=== PATIENT | male | born 1935 | race Caucasian/White ===

== ENCOUNTER 2017-01-30 19:59 | Inpatient (IN) | payer MEDICARE, BC ==
[2017-01-30] VITALS: BP 143/79
[~2017-01-30] VITALS: Ht 157.5 cm; Wt 79.4 kg
--- NOTE | 2017-01-30 20:05 | NUR ---
To bed 1 an 81 yo male bibra with c/o of sob [place]. Patient is aao3, tachypneic, without use of accessory muscles, diminished lungs sounds with mild wheezes heard bilaterally. On room air, patient's o2 saturation is 90. Placed on nonrebreather mask at 15lpm, thuan well with o2 saturation of 100%. Gowned. Placed on board filler. Awaiting for er md holland.
--- NOTE | 2017-01-30 20:14 | NUR ---
Dr Damon at bedside for eval.
--- NOTE | 2017-01-30 20:20 | NUR ---
crime lab technician at bedside.
[2017-01-30 20:25] LABS: BASOPHILS # (AUTO) 0.1 /CMM (0.0-0.2); BASOPHILS % (AUTO) 1.4 % (0.0-2.0); EOSINOPHILS # (AUTO) 0.5 /CMM (0.0-0.7); EOSINOPHILS % (AUTO) 7.6 % (0.0-6.0); HEMATOCRIT 49 % (39-51); HEMOGLOBIN 16.1 g/dL (13.5-17.5); LYMPHOCYTES # (AUTO) 2.2 /CMM (0.8-4.8); LYMPHOCYTES % (AUTO) 33.1 % (20.0-44.0); MEAN CORPUSCULAR HEMOGLOBIN 29 PG (26.0-33.0); MEAN CORPUSCULAR HGB CONC 33 g/dl (31.0-36.0); MEAN CORPUSCULAR VOLUME 88 fL (80-96); MONOCYTES # (AUTO) 0.4 /CMM (0.1-1.30); MONOCYTES % (AUTO) 6.7 % (2.0-12.0); NEUTROPHILS # (AUTO) 3.4 /CMM (1.8-8.9); NEUTROPHILS % (AUTO) 51.2 % (43.0-81.0); PLATELET COUNT (AUTO) 201 /CMM (150-450); RDW COEFFICIENT OF VARIATION 14.1 (11.5-15.0); RED BLOOD CELL COUNT(AUTO) 5.57 MIL/uL (4.5-6.0); WHITE BLOOD COUNT (AUTO) 6.7 K/uL (4.3-11.0)
[2017-01-30] MEDS ORDERED: methylPREDNISolone SOD SUCC 125 MG/2ML VIAL ONE (20:28)
[2017-01-30] MEDS ORDERED: ALBUTEROL FS 2.5 MG/3 ML VIAL.NEB NEB ONE (20:30)
[2017-01-30] MEDS ORDERED: methylPREDNISolone SOD SUCC 125 MG/2ML VIAL IV ONE (20:30)
[2017-01-30] MEDS ORDERED: IPRATROPIUM NEB FS 0.5 MG/2.5 ML AMPUL.NEB NEB ONE (20:30)
--- NOTE | 2017-01-30 20:37 | NUR ---
breathing treatment by rt.
[2017-01-30] MEDS ORDERED: ALBUTEROL FS 2.5 MG/3 ML VIAL.NEB ONE (20:38)
[2017-01-30] MEDS ORDERED: IPRATROPIUM NEB FS 0.5 MG/2.5 ML AMPUL.NEB ONE (20:38)
[2017-01-30 20:48] LABS: TROPONIN I 0.325 ng/mL (0.00-0.056)
[2017-01-30 20:53] LABS: ALBUMIN 3.6 g/dL (3.4-5.0); BILIRUBIN,DIRECT 0.1 mg/dL (0.0-0.2); BILIRUBIN,TOTAL 0.4 mg/dL (0.2-1.0); CREATININE 1.1 mg/dL (0.6-1.3); TOTAL PROTEIN, SERUM 7.5 g/dL (6.4-8.2)
[2017-01-30 21:08] LABS: INR 0.96 (0.87-1.13); PROTHROMBIN TIME 10.3 SECS (9.5-12.7)
[2017-01-30] MEDS ORDERED: ASPIRIN 81 MG TAB.CHEW PO ONE (21:30)
[2017-01-30] MEDS ORDERED: FUROSEMIDE 20 MG/2 ML VIAL IV ONE (21:30)
--- NOTE | 2017-01-30 21:30 | NUR ---
PAGED BURAK CARLSONFOR ADMISSION.
[2017-01-30] MEDS ORDERED: ASPIRIN 81 MG TAB.CHEW ONE (21:37)
[2017-01-30] MEDS ORDERED: FUROSEMIDE 20 MG/2 ML VIAL ONE (21:37)
[2017-01-30] MEDS ORDERED: MAG HYDROX/AL HYDROX/SIMETH 30 ML UDC PO PRN (22:00)
[2017-01-30] MEDS ORDERED: ONDANSETRON HCL/PF 4 MG/2 ML VIAL IVP PRN (22:00)
[2017-01-30] MEDS ORDERED: HYDROCODONE/APAP 5/325MG 1 EACH TABLET PO PRN (22:00)
[2017-01-30] MEDS ORDERED: IPRATROPIUM NEB FS 0.5 MG/2.5 ML AMPUL.NEB NEB PRN (22:00)
[2017-01-30] MEDS ORDERED: ALBUTEROL FS 2.5 MG/0.5 ML VIAL.NEB NEB PRN (22:00)
[2017-01-30] MEDS ORDERED: ENOXAPARIN SODIUM 40 MG/0.4 ML DISP.SYRIN SQ SCH (22:00)
[2017-01-30] MEDS ORDERED: MAGNESIUM HYDROXIDE 30 ML UDC PO PRN (22:00)
[2017-01-30] MEDS ORDERED: ACETAMINOPHEN 325 MG TABLET PO PRN (22:00)
[2017-01-30] MEDS ORDERED: Z GUARD REMEDY 2 OZ OINT TP PRN (22:00)
[2017-01-30] MEDS ORDERED: BUDE10.2 INH (22:14)
[2017-01-30] MEDS ORDERED: TERA5CAP4 PO (22:14)
[2017-01-30] MEDS ORDERED: ATEN25TA PO (22:15)
[2017-01-30] MEDS ORDERED: ISOS60TA4 PO (22:15)
[2017-01-30] MEDS ORDERED: SIMV20TA6 PO (22:16)
[2017-01-30] MEDS ORDERED: FURO20TA4 PO (22:16)
[2017-01-30] MEDS ORDERED: ALBU18HF2 INH (22:17)
[2017-01-30] MEDS ORDERED: LISI-603 PO (22:17)
[2017-01-30] MEDS ORDERED: MOME45CR20 TP (22:18)
[2017-01-30] MEDS ORDERED: NITROGLYCERIN PACKET 1 GM PACKET ONE (22:18)
[2017-01-30] MEDS ORDERED: NITROGLYCERIN PACKET 1 GM PACKET TD ONE (22:30)
--- NOTE | 2017-01-30 22:30 | NUR ---
Report given to Jv RN for phuc.
--- NOTE | 2017-01-30 22:41 | NUR ---
transported to [address], rm [address] under [facility] protocol, Jv RN at bedside. No incident noted.
[2017-01-30 22:45] VITALS: BP 155/76
--- NOTE | 2017-01-30 22:45 | NUR ---
SUPERVISOR QUILTING NOTES ADMITTED THIS 81 YEAR OLD GENTLEMAN. RECEIVED PATIENT FROM ER VIA GURNEY, PATIENT AMBULATORY, STEADY WITHOUT ANY ASSISTANCE. BREATHING EVEN AND NONLABORED, DENIES ANY RESPIRATORY DISTRESS AT THIS TIME. TOLERATING O2 AT 2LPM VIA NC. PLACED ON TELEMETRY MONITORING, REVEALING SINUS TACHYCARDIA, HR = 110. SKIN INTACT. IV SITE PATENT AND INTACT, FLUSHED WITH NS, SALINE LOCKED. PLAN OF CARE DISCUSSED WITH THE PATIENT AND FAMILY MEMBERS, WHO BOTH VERBALIZE UNDERSTANDING REGARDING THE PLAN OF CARE. CALL LIGHT LEFT WITHIN EASY REACH, BED IN LOWEST AND LOCKED POSITION. WILL CONTINUE TO CLOSELY MONITOR
[2017-01-30] MEDS ORDERED: ENOXAPARIN SODIUM 40 MG/0.4 ML DISP.SYRIN SQ ONE (22:49)
[2017-01-31] VITALS: BP 143/79
--- NOTE | 2017-01-31 03:09 | NUR ---
RN NOTES 2ND TROPONIN 0.367, ELEVATED FROM 0.325. D-DIMER 0.65. RESULTS RELAYED TO DR DERAS, NO NEW ORDERS RECEIVED.
[2017-01-31 04:00] VITALS: BP 108/52
--- NOTE | 2017-01-31 07:27 | NUR ---
RN CLOSING NOTES PATIENT ENDORSED TO THE AM SHIFT NURSE FOR ALBERTO
[2017-01-31 08:00] VITALS: BP 155/78
[2017-01-31 08:32] LABS: BASOPHILS % (AUTO) 0.2 % (0.0-2.0); HEMATOCRIT 46 % (39-51); HEMOGLOBIN 15.4 g/dL (13.5-17.5); LYMPHOCYTES # (AUTO) 0.8 /CMM (0.8-4.8); LYMPHOCYTES % (AUTO) 13.6 % (20.0-44.0); MEAN CORPUSCULAR HEMOGLOBIN 29 PG (26.0-33.0); MEAN CORPUSCULAR HGB CONC 34 g/dl (31.0-36.0); MEAN CORPUSCULAR VOLUME 87 fL (80-96); MONOCYTES # (AUTO) 0.1 /CMM (0.1-1.30); MONOCYTES % (AUTO) 1.1 % (2.0-12.0); NEUTROPHILS # (AUTO) 4.7 /CMM (1.8-8.9); NEUTROPHILS % (AUTO) 85.1 % (43.0-81.0); PLATELET COUNT (AUTO) 193 /CMM (150-450); RDW COEFFICIENT OF VARIATION 13.5 (11.5-15.0); RED BLOOD CELL COUNT(AUTO) 5.29 MIL/uL (4.5-6.0); WHITE BLOOD COUNT (AUTO) 5.6 K/uL (4.3-11.0)
[2017-01-31 08:35] LABS: ALBUMIN 3.4 g/dL (3.4-5.0); BILIRUBIN,TOTAL 0.5 mg/dL (0.2-1.0); CALCIUM, SERUM 8.8 mg/dL (8.5-10.1); POTASSIUM 3.9 mmol/L (3.5-5.1); TOTAL PROTEIN, SERUM 7.4 g/dL (6.4-8.2)
[2017-01-31] MEDS: ASPIRIN 81 MG TAB.CHEW PO SCH (08:36)
[2017-01-31 08:45] LABS: THYROID STIMULATING HORMONE 0.654 uIU/mL (0.358-3.74)
[2017-01-31] MEDS ORDERED: Budesonide/Formoterol Fumarate (Symbicort 160-4.5 Mcg In INH SCH (09:00)
[2017-01-31] MEDS ORDERED: FUROSEMIDE 40 MG/4 ML VIAL IV SCH (09:00)
[2017-01-31] MEDS ORDERED: ATENOLOL 25 MG TABLET PO SCH (09:00)
[2017-01-31 12:00] VITALS: BP 154/77
[2017-01-31] MEDS ORDERED: POTASSIUM CHLORIDE 20 MEQ TAB.PRT.SR PO SCH (12:00)
[2017-01-31] MEDS: FUROSEMIDE 40 MG/4 ML VIAL IV SCH ×3 (12:08→20:14)
[2017-01-31] MEDS: MOMETASONE FUROATE 0.1% CREAM 15 GM TUBE TP SCH (12:08)
[2017-01-31] MEDS: ISOSORBIDE MONONITRATE (30MG) 30 MG TAB.SR.24H PO SCH (12:10)
--- NOTE | 2017-01-31 15:06 | NUR ---
RN NOTES PT REFUSED TO GO THROUGH STRESS TEST STATING THAT HE IS SCARED, AND THAT HE HAD THIS TEST DONE 10 YEARS AGO. RISKS AND BENEFITS EXPLAINED, PT STILL REFUSED. DR KING NOTIFIED. HE SAID TO CANCELL THE ORDER/TEST.
[2017-01-31 16:00] VITALS: BP 127/65
--- NOTE | 2017-01-31 16:55 | NUR ---
RN NOTES PT CHANGED MIND AND CONSENTED TO STRESS TEST, DR KING NOTIFIED. WILL ENDORSE TO [employer] ASSEMBLER NURSE.
[2017-01-31] MEDS ORDERED: SIMVASTATIN 20 MG TABLET PO SCH (18:00)
[2017-01-31] MEDS ORDERED: TERAZOSIN HCL 5 MG CAPSULE PO SCH (18:00)
--- NOTE | 2017-01-31 19:30 | NUR ---
RN INITIAL NOTES RECEIVED PATIENT IN BED, AWAKE, ALERT AND ORIENTED X3, ABLE TO VERBALIZE NEEDS. PATIENT'S FAMILY MEMBER AT BEDSIDE. BREATHING EVEN AND NONLABORED, PATIENT CURRENTLY ON ROOM AIR, TOLERATING WELL, FREE FROM ANY S/S OF RESPIRATORY DISTRESS. STANDBY O2 @ BEDSIDE. IV SITE PATENT AND INTACT, FLUSHED WITH NS, FREE FROM ANY S/S OF INFILTRATION OR PHLEBITIS. PLAN OF CARE DISCUSSED WITH THE PATIENT, WHO VERBALIZES UNDERSTANDING. CALL LIGHT LEFT WITHIN EASY REACH, BED IN LOWEST AND LOCKED POSITION. WILL CONTINUE TO CLOSELY MONITOR
[2017-01-31 20:00] VITALS: BP 107/56
--- NOTE | 2017-01-31 20:00 | NUR ---
RN NOTES PATIENT NOTED WITH DENTURES (BOTTOMS) NOT PRESENT ON ADMISSION. PER PATIENT, HIS SON BROUGHT THEM IN EARLIER TODAY. ITEM ADDED TO BELONGINGS LIST, DENTURES PLACED IN DENTURE CONTAINER FOR SAFETY.
[2017-01-31] MEDS ORDERED: ENOXAPARIN SODIUM 40 MG/0.4 ML DISP.SYRIN SQ SCH (21:00)
[2017-01-31] MEDS ORDERED: LISINOPRIL (20MG) 20 MG TABLET PO SCH (22:00)
[2017-02-01] VITALS: BP 111/50
[2017-02-01 04:00] VITALS: BP_SYST 101; BP_SYST 95; BP_DIAS 40; BP_DIAS 55
[2017-02-01 05:00] VITALS: BP 108/56
--- NOTE | 2017-02-01 06:51 | NUR ---
RN CLOSING NOTES PATIENT RESTING COMFORTABLY IN BED, NO ACUTE CHANGES OVERNIGHT. PATIENT HAS BEEN NPO SINCE MIDNIGHT, SCHEDULED FOR PROCEDURE IN AM. WILL ENDORSE THE PATIENT TO THE AM SHIFT NURSE FOR ALBERTO
--- NOTE | 2017-02-01 07:20 | NUR ---
RN INITIAL NOTES: Rec'd pt awake on bed, A&O x3, not in any distress, denies chest pain. On room air, no SOB, saturating at 92%. 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 Pt has R hand G18, SL, flushed, patent, C/D/I, no signs of infection/ infiltration noted. Pt instructed NPO for NM Myocardial Stress Test, verbalized understanding. Provided comfort & safety measures. Call light placed w/in reached. Bed kept low & in locked position. Will continue to monitor.
[2017-02-01 08:00] VITALS: BP_SYST 101; BP_SYST 103; BP_DIAS 44; BP_DIAS 55
[2017-02-01] MEDS ORDERED: REGADENOSON 0.4 MG/5 ML DISP.SYRIN IVP ONE (08:00)
--- NOTE | 2017-02-01 08:00 | NUR ---
RN NOTES: Pt seen & examined by Dr. Morales. Pt was sent to radiology for Stress Test c/o Sam.
[2017-02-01] MEDS ORDERED: FUROSEMIDE 40 MG/4 ML VIAL IV SCH (09:00)
--- NOTE | 2017-02-01 09:30 | NUR ---
RN NOTES: Stress Test done. Pt not in any distress. Kept comfortable, warm & rested.
[2017-02-01 10:06] LABS: CALCIUM, SERUM 9.3 mg/dL (8.5-10.1); CREATININE 2.2 mg/dL (0.6-1.3); POTASSIUM 4.1 mmol/L (3.5-5.1)
[2017-02-01] MEDS: POTASSIUM CHLORIDE 20 MEQ TAB.PRT.SR PO SCH ×3 (10:08→12:26)
[2017-02-01] MEDS: ASPIRIN 81 MG TAB.CHEW PO SCH (10:08)
[2017-02-01 10:12] LABS: ALBUMIN 3.8 g/dL (3.4-5.0); BILIRUBIN,TOTAL 0.6 mg/dL (0.2-1.0); MAGNESIUM 2.3 mg/dL (1.8-2.4); PHOSPHORUS 4.3 mg/dL (2.5-4.9); TOTAL PROTEIN, SERUM 7.7 g/dL (6.4-8.2)
[2017-02-01] MEDS: MOMETASONE FUROATE 0.1% CREAM 15 GM TUBE TP SCH (10:29)
[2017-02-01] MEDS: ISOSORBIDE MONONITRATE (30MG) 30 MG TAB.SR.24H PO SCH (11:37)
[2017-02-01 12:00] VITALS: BP 105/54
--- NOTE | 2017-02-01 12:00 | NUR ---
RN NOTES: Carried out Dr. Yobani MCDERMOTT orders. Dr. Morales made aware, he said okay.
--- NOTE | 2017-02-01 12:30 | NUR ---
RN DISCHARGING NOTES: Discharge instructions & documents given to pt & pt's son (Michael). Verbalized understanding. Personal belongings returned to pt. Inventory log signed off. IV site removed, pressure dressing applied, no signs of infection noted. ID band removed. Pt left Med Surg 1 unit via wheelchair accompanied by tigist & CAROL Howell in stable condition to an awaiting private car.
== END 2017-02-01 12:00 | disposition home or self-care (01) | DRG 280 ==
LOC: ER 20:01 → TELE1 22:25 → MEDSG1 02-01 10:32
PROVIDERS: ADMIT Contractor; ATTEND Contractor
DX: I11.0 Hypertensive heart disease with heart failure (principal); I21.4 Non-ST elevation (NSTEMI) myocardial infarction; J96.01 Acute respiratory failure with hypoxia; J90 Pleural effusion, not elsewhere classified; I50.33 Acute on chronic diastolic (congestive) heart failure; E78.5 Hyperlipidemia, unspecified; I25.10 Atherosclerotic heart disease of native coronary artery without angina pectoris; I25.2 Old myocardial infarction; J44.9 Chronic obstructive pulmonary disease, unspecified; N40.0 Benign prostatic hyperplasia without lower urinary tract symptoms; Z87.891 Personal history of nicotine dependence; Z98.61 Coronary angioplasty status; I34.0 Nonrheumatic mitral (valve) insufficiency
CPT/HCPCS: 36415; 71010-TC; 80048-TC; 80053-TC; 80061-TC; 80076-TC; 83735-TC; 83880; 84100-TC; 84443-TC; 84484-TC; 85025-TC; 85378-TC; 85730-TC; 87081-TC; 93307-TC; A4606; A9502; J1650; J1940; J2785; J2930